=== PATIENT | male | born 1995 | race Native Hawaiian/Other Pacific Islander ===

== ENCOUNTER 2018-01-24 07:30 | Emergency (ER) | payer OTHER ==
[~2018-01-24] VITALS: Ht 167.6 cm; Wt 88.0 kg
[2018-01-24 07:36] VITALS: BP 125/62
== END 2018-01-24 10:24 | disposition home or self-care (01) ==
LOC: ED 07:30
DX: S05.02XA Injury of conjunctiva and corneal abrasion without foreign body, left eye, initial encounter (principal); X58.XXXA Exposure to other specified factors, initial encounter; Y93.89 Activity, other specified; Y92.89 Other specified places as the place of occurrence of the external cause; Y99.8 Other external cause status

== ENCOUNTER 2020-09-18 20:15 | Emergency (ER) | payer SELFPAY ==
[~2020-09-18] VITALS: Ht 165.1 cm; Wt 86.2 kg
[2020-09-18 20:36] VITALS: Ht 165.1 cm; Wt 86.2 kg
[2020-09-18] MEDS ORDERED: ZOFRAN4 M3 PO (21:35)
[2020-09-18 22:02] VITALS: BP 121/75
== END 2020-09-18 22:02 | disposition home or self-care (01) ==
LOC: ED 20:15
DX: A08.4 Viral intestinal infection, unspecified (principal); Z20.828 Contact with and (suspected) exposure to other viral communicable diseases
CPT/HCPCS: Q0162; U0003